=== PATIENT | male | born 1960 | race Caucasian/White ===

== ENCOUNTER → 2017-12-07 09:12 | Outpatient (CLI) | payer OTHER, BC, SELFPAY ==
[2017-12-07 09:19] LABS: RBC Urine None Seen (0-5/HPF); WBC Urine None Seen (0-5/HPF)
[2017-12-07 10:16] LABS: Add Manual Diff / Slide Review NO; Basophils Percent Auto 0.7 % (0-2); Eosinophils Percent Auto 2.3 % (2-4); Hematocrit 40.7 % (41-53); Hemoglobin 13.9 g/dL (13.5-17.5); Lymphocytes Percent Auto 17.2 % (25-40); Mean Corpuscular HGB Conc 34.2 % (30-36); Mean Corpuscular Hemoglobin 30.3 PG (26-34); Mean Corpuscular Volume 88.5 fL (80-100); Monocytes Percent Auto 10.7 % (3-14); Neutrophils Absolute Auto 3800 /uL (3000-5900); Neutrophils Percent Auto 69.1 % (50-75); Platelet Count 261 X10^3/uL (150-400); Red Cell Distribution Width 13.2 % (11.6-14.8); White Blood Cell Count 5.6 X10^3/uL (4.5-11.0)
[2017-12-07 10:36] LABS: Hemoglobin A1C% w Est Avg Glu 5.8 % (4.0-6.0)
[2017-12-07 10:42] LABS: BUN Creatinine Ratio 10.7 (6-22); Blood Urea Nitrogen 15 mg/dL (9-20); Calcium 9.3 mg/dL (8.4-10.2); Carbon Dioxide 29 mmol/L (22-32); Chloride 97 mmol/L (98-107); Estimated Glomerular Filt Rate 52.6 mL/min (>60); Glucose 92 mg/dL (70-100); HEMOLYSIS < 15 (0-50); Potassium 4.2 mmol/L (3.4-5.1); Sodium 138 mmol/L (137-145)
[2017-12-07 10:49] LABS: Appearance Urine UA CLEAR; Bilirubin Urine UA NEGATIVE (NEGATIVE); Color Urine UA YELLOW; Glucose Urine UA NEGATIVE (Normal); Ketones Urine UA NEGATIVE (NEGATIVE); Leukocyte Esterase Urine UA NEGATIVE (NEGATIVE); Nitrite Urine UA Negative (Negative); Occult Blood Urine UA NEGATIVE (Negative); Protein Urine UA NEGATIVE (Negative); Urobilinogen Urine UA 0.2 E.U./dL (0.2)
[2017-12-07 11:04] LABS: Bacteria Urine Occasional (0-1); Culture Indicated Urine Cult Not Indicated
== END ==
PROVIDERS: PCP Family Medicine; Visit Provider Orthopaedic Surgery
DX: Z01.812 Encounter for preprocedural laboratory examination (principal); Z01.818 Encounter for other preprocedural examination; N39.9 Disorder of urinary system, unspecified; R73.09 Other abnormal glucose
CPT/HCPCS: 36415; 80048; 81001; 83036; 85025; 93005

== ENCOUNTER 2022-12-31 06:11 | Day surgery (SDC) | payer OTHER, SELFPAY ==
[2022-12-23 11:42] VITALS: BMI 33.9
[2022-12-31 07:07] VITALS: BP 156/95; PULSE 61; RESP 16; TEMP 36.2; O2SAT 97; BMI 33.9
[2022-12-31] MEDS: LACTATED RINGERS 1,000 ML 42 ML IV (07:14)
--- NOTE | 2022-12-31 07:28 | PM.PREOP ---
Pre-operative Note Interval Note History & Physical reviewed/Exam performed by Physician: Yes Changes to H&P: No
--- NOTE | 2022-12-31 07:33 | SUR.PREOP ---
Block start time [0733] . Time out done prior to block placement. Dr Jay Jay Weaver assisting JOVANNY Tellez. Monitoring initiated and maintained throughout procedure. Oxygen and medications given per anesthesiologist instructions. Patient remained stable throughout procedure, no adverse reactions noted. Block end time [0740].
[2022-12-31 07:42] LABS: BUN Creatinine Ratio 9.7 (6-22); Blood Urea Nitrogen 14 mg/dL (9-20); Calcium 8.9 mg/dL (8.4-10.2); Carbon Dioxide 27 mmol/L (22-32); Chloride 102 mmol/L (98-107); Estimated Glomerular Filt Rate 55 mL/min (>60); Glucose 97 mg/dL (80-110); HEMOLYSIS < 15 (0-50); Potassium 4.2 mmol/L (3.4-5.1); Sodium 136 mmol/L (137-145)
[2022-12-31] MEDS: CEFAZOLIN 2 GM/100 ML PREMIX 100 ML IV (07:55)
--- NOTE | 2022-12-31 08:30 | SUR.OPER ---
Beach chair with [employer] shoulder positioner. Lower body on padded OR bed. Head in foam padded head cradle, secured with straps. Non-operative arm secured <90 degrees abduction. Left arm in control of surgeon. Pillow under knees. Safety belt at thigh. Cloth tape over blanket over lower legs.
[2022-12-31] MEDS: BUPIVACAINE 0.5% (PF) 30 ML, EPINEPHrine 0.15 MG INJ (08:52)
[2022-12-31 09:11] VITALS: BP 152/90; PULSE 60; RESP 16; TEMP 36.2; O2SAT 97
--- NOTE | 2022-12-31 09:11 | PM.OP.1 ---
Operative Date/Time/Diagnoses Date of procedure: 12/31/22 Time of procedure: 07:45 Pre-op diagnosis: Left shoulder partial rotator cuff tear with glenohumeral joint arthritis Post-op diagnosis: same Procedure & Clinicians Procedure: Left shoulder extensive debridement as well as subacromial decompression. Same procedure as scheduled: Yes Indications: Left shoulder partial rotator cuff tear with arthritis. Surgeon: Tyson Finley School Bus Driver/Teacher Assistant: Josephine Steiner Anesthesia Type: General and Peripheral nerve block Operative Notes Findings: Extensive arthritic changes to the glenohumeral joint with areas of full-thickness cartilage loss. No sign of any significant osteophyte formation. Degenerative changes throughout the entire labrum. Some calcifications around the proximal biceps tendon but no significant tearing. Mainly articular sided rotator cuff tearing involving the supraspinatus and infraspinatus. Subscapularis free of any significant articular sided tearing. No sign of any loose bodies in the glenohumeral joint. Synovitis and bursitis in the subacromial and subdeltoid space. No sign of any significant bursal sided rotator cuff tears. No sign of any full-thickness tears. Closure Type: primary Estimated Blood Loss (mL): 5 Procedure in detail: On date of service, Patient was met in the holding area. The operative site was signed and witnessed by the OR staff. The surgeries once again discussed with the patient and any remaining questions they had were answered fully. Patient was taken back to the operating theater and placed on the operating table in a supine position. Great care was taken to ensure that all bony prominences were properly padded. Patient was then placed into the beach chair position. The head and neck were properly positioned and secured. A timeout was performed verifying patient's name, procedure, and the operative site. The upper extremity was then prepped and draped in the normal sterile fashion. Previously, the bony anatomy and portal sites were marked out as well as injected with Marcaine with epinephrine. An 11 blade was used to make an incision in the posterior aspect of the shoulder. The camera was placed, and a diagnostic shoulder scope was performed. Findings listed above. Next under direct visualization, a anterior portal was made. Shaver was placed into the anterior portal and a extensive debridement of the glenohumeral joint was performed. As mentioned above patient had significant arthritic changes to the glenohumeral joint. Debridement of the humeral head and glenoid was performed with a shaver. Shaver was then also used to debride the labral tissue and the articular tearing to the supraspinatus and infraspinatus. No sign of any obvious high-grade partial tears no sign of any full-thickness tears. Shaver was also used to remove any synovitis in the glenohumeral joint. Next the camera was placed into the subacromial space. A lateral portal was obtained under direct visualization. A combination of the shaver and vapor wand, a debridement of the inflamed tissue as well as inflamed bursa was performed. The lateral gutter was also cleaned out. This gave us good visualization of the bursal aspect of the rotator cuff as well as the acromial arch. There was an obvious impingement lesion in the acromial arch. Next we turned our attention to the subacromial decompression. Next, a inessa was then used to do a subacromial decompression. This allowed us to convert the acromion to a type I acromial. This also allowed us to shave down the bony lesion in the acromial space. The rasp was placed into the lateral portal as well as the anterior portal in order to do a complete subacromial decompression. We then turned our attention to the rotator cuff tear. Shaver was used to debride once again any fraying or partial tearing to the superior portion of the rotator cuff. Also used to remove any remaining synovitis and inflamed bursal tissue. The shoulder was then taken through range of motion and there was no sign of any additional impingement. Patient's shoulder was then cleaned dried and dressed and patient was taken to the PACU in stable condition. Complications: none Post-operative Condition: stable Disposition: PACU Plan for aftercare: No restrictions to range of motion. We will limit his lifting until he regains full pain-free range of motion to the shoulder.
[2022-12-31 09:16] VITALS: BP 150/93; PULSE 62; RESP 13; O2SAT 92
[2022-12-31 09:21] VITALS: BP 151/92; PULSE 63; RESP 18; O2SAT 93
[2022-12-31 09:30] VITALS: BP 148/91; PULSE 67; RESP 13; O2SAT 94
[2022-12-31 09:45] VITALS: BP 151/94; PULSE 62; RESP 12; O2SAT 95
== END 2022-12-31 10:15 | disposition home or self-care (01) ==
PROVIDERS: Anesthesiology; PCP Family Medicine; Referring Provider Orthopaedic Surgery; Visit Provider Orthopaedic Surgery
PROC: (CPT 29827; principal; 2022-12-31 07:45)
DX: M75.112 Incomplete rotator cuff tear or rupture of left shoulder, not specified as traumatic (principal); M19.012 Primary osteoarthritis, left shoulder; I10 Essential (primary) hypertension; E11.9 Type 2 diabetes mellitus without complications
CPT/HCPCS: 29823; 36415; 64450; 80048; J0171; J0330; J0690; J1100; J2250; J2405; J2704; J3010

== ENCOUNTER → 2024-02-26 11:26 | Outpatient (CLI) | payer OTHER, SELFPAY ==
--- NOTE | 2024-02-26 11:28 | DI.CT.S_ITS ---
PROCEDURE: CT UE LT WO CON INDICATIONS: ARTHRITIS OF LEFT GLENOHUMERAL JOINT TECHNIQUE: Noncontrast 0.75 mm thick sections acquired from the acromioclavicular joint to the inferior scapula, with coronal and sagittal reformatting. COMPARISON: [facility] Outside Film, MR, MR SHOULDER LEFT WITHOUT CONTRAST, 07/04/2022, 11:39. FINDINGS: Image quality: Excellent. Bones: No fracture or dislocation. Joints: Severe glenohumeral joint, including a large crescentic osteophyte at the inferior-medial humeral head margin (5/107), joint space narrowing, subchondral cyst formation, and subchondral sclerosis. Mild acromioclavicular osteoarthritis. Muscles: Overall muscle bulk is preserved. Tendons: Preserved contour of the long head of the biceps tendon. Vessels: No aneurysmal dilatation of the visualized left axillary vasculature. Lymph nodes: No left axillary lymphadenopathy. Other soft tissues: Visualized heart and left lung parenchyma within normal limits. No pneumothorax. IMPRESSION: Severe glenohumeral osteoarthritis. Dictated by: Mike Lester M.D. on 02/27/2024 at 18:27 Approved by: Mike Lester M.D. on 02/27/2024 at 18:32
[2024-02-26 11:45] LABS: Add Manual Diff / Slide Review NO; Basophils Absolute Auto 0 /uL (0-100); Eosinophils Absolute Auto 100 /uL (0-450); Eosinophils Percent Auto 2.8 % (2-4); Hemoglobin 13.3 g/dL (13.5-17.5); Lymphocytes Absolute Auto 800 /uL (1100-4500); Lymphocytes Percent Auto 20.7 % (25-40); Mean Corpuscular Hemoglobin 30.7 PG (26-34); Mean Corpuscular Volume 90.2 fL (80-100); Monocytes Absolute Auto 400 /uL (0-900); Monocytes Percent Auto 9.5 % (3-14); Neutrophils Absolute Auto 2600 /uL (1500-7000); Platelet Count 205 X10^3/uL (150-400); Red Blood Cell Count 4.32 X10^6/uL (4.5-5.9); Red Cell Distribution Width 13.9 % (11.6-14.8); White Blood Cell Count 3.9 X10^3/uL (4.5-11.0)
[2024-02-26 11:58] LABS: BUN Creatinine Ratio 9.5 (6-22); Blood Urea Nitrogen 16 mg/dL (9-20); Calcium 9.2 mg/dL (8.4-10.2); Carbon Dioxide 27 mmol/L (22-32); Chloride 100 mmol/L (98-107); Estimated Glomerular Filt Rate 46 mL/min (>60); Glucose 159 mg/dL (80-110); HEMOLYSIS < 15 (0-50); Potassium 3.9 mmol/L (3.4-5.1); Sodium 134 mmol/L (137-145)
--- NOTE | 2024-02-26 12:16 | EKG_ITS ---
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
== END ==
PROVIDERS: PCP Family Medicine; Referring Provider Orthopaedic Surgery; Visit Provider Orthopaedic Surgery
DX: Z01.818 Encounter for other preprocedural examination (principal); Z01.812 Encounter for preprocedural laboratory examination; M19.012 Primary osteoarthritis, left shoulder
CPT/HCPCS: 36415; 73200; 80048; 85025; 93005

== ENCOUNTER 2024-04-11 08:53 | Day surgery (SDC) | payer OTHER, SELFPAY ==
--- NOTE | 2024-04-10 16:04 | DIET.CONS ---
Dietary Consultation Note Admission Date: Assessment: RD consulted as part of ERAS protocol. Called patient on 04/05/24. Per surgery report- Pt with PMH of diverticulitis with symptoms of progressive large bowel obstruction suspected to be from diverticular stricture. Will have diagnostic colonoscopy followed by lap colectomy as needed. Pt reports stable weight and no changes in amount of food eaten. Does note feeling bloated after eating. Discussed with pt adequate nutrition days leading up to surgery and pre and post-op diet. Discussed that reducing intake of high fibrous foods and slowing pace of eating at meals before surgery may help with symptoms of bloating. Pt had no questions or concerns. Will f/u with pt post-op while inpatient. Ht: 6 ft Wt: 244.5 lb BMI: 32.5 UBW: 240 lb 03/02/24 Electronically Signed by: Michell Leger 04/10/24 16:04 Clinical Dietitian [address] [address]
[2024-04-11 09:34] VITALS: BP 166/82; PULSE 70; RESP 16; TEMP 36.6; O2SAT 94
--- NOTE | 2024-04-11 10:00 | P.HP_ITS ---
History of Present Illness History of Present Illness Date Patient Seen: 04/11/24 Time Patient Seen: 10:01 Chief complaint: Colonoscopy Narrative: 63-year-old male here for diagnostic colonoscopy for suspected colonic stricture. No interval change in health. Please refer to H& P from last month for further detail. [facility] Medical History (Updated 03/02/24 @ 18:02 by Go Mohan MD) Clavicle fracture GI bleed Renal failure (2007) GERD (gastroesophageal reflux disease) HLD (hyperlipidemia) HTN (hypertension) Hypothyroidism Surgical History (Updated 04/04/24 @ 14:17 by Whit Leger RN) Status post left partial knee replacement (~2017) S/P rotator cuff repair (12/31/22) Status post total replacement of right shoulder (2013) History of esophagogastroduodenoscopy (EGD) (09/13/07) Hx of colonoscopy with polypectomy (05/26/16) Family History Father Hypertension Cancer Brother Hypertension Mother Cancer Social History household members: spouse Smoking Status: Never smoker alcohol intake: former substance use type: unknown Meds Home Medications and Allergies Home Medications Medication Instructions Recorded Confirmed Type amlodipine 10 mg tablet 10 mg PO DAILY 03/02/24 04/11/24 History levothyroxine 150 mcg tablet 150 mcg PO DAILY 03/02/24 04/11/24 History losartan 100 mg tablet 100 mg PO DAILY 03/02/24 04/11/24 History omeprazole 20 mg capsule,delayed 20 mg PO DAILY 03/02/24 04/11/24 History release propranolol 160 mg capsule,24 160 mg PO DAILY 03/02/24 04/11/24 History hr,extended release terazosin 10 mg capsule 10 mg PO DAILY 03/02/24 04/11/24 History metronidazole 500 mg tablet 500 mg PO TID #3 tabs 03/06/24 04/11/24 Rx neomycin 500 mg tablet 1 g (2 x 500 mg) PO TID 3 doses #6 03/06/24 04/11/24 Rx tabs Allergies Allergy/AdvReac Type Severity Reaction Status Date / Time NSAIDS (Non-Steroidal Allergy Mild cant take Verified 04/11/24 09:17 Anti-Inflamma kidney [NSAIDS (NON-STEROIDAL disease ANTI-INFLAMMA] BEE Allergy Intermediate SWELLING Uncoded 04/04/24 14:01 AT SITE Exam Vital Signs (past 8 hours): - 04/11/24 09:34 Temperature 97.8 F Pulse Rate 70 Respiratory Rate 16 Blood Pressure 166/82 H Pulse Oximetry 94 Oxygen Delivery Method Room Air Oxygen Delivery Method Room Air Narrative Exam Narrative: General adult man alert oriented no acute distress Chest nonlabored respiration Extremities warm well perfused Assessment & Plan Assessment and plan (1) Colonic stricture: Status: Acute Assessment & Plan narrative: Diagnostic colonoscopy today for suspected colonic stricture. Technical details were discussed. Risks, benefits, alternatives explained. Risks including but not limited to myocardial infarction, aspiration, bleeding, pain, missed lesion, incomplete examination, need for further radiographic studies, intestinal injury, and need for major abdominal surgery were discussed. All questions were answered to their satisfaction, and they are in agreement with this plan. Time-Based Coding :: [TOTAL MINUTES] spent with patient and on the chart (including review of chart, obtaining history, exam, reviewing outside data, placing orders, documenting exam and treatment plan, and counseling patient) on [DATE].
[2024-04-11 10:21] VITALS: BP 129/71; PULSE 781; RESP 4; TEMP 36.2; O2SAT 92
[2024-04-11 10:26] VITALS: BP 117/63; PULSE 73; RESP 14; O2SAT 95
[2024-04-11 10:31] VITALS: BP 123/71; PULSE 69; RESP 14; TEMP 36.7; O2SAT 93
--- NOTE | 2024-04-11 10:33 | P.OP.COLON_ITS ---
Operative Date/Time/Diagnoses Date of procedure: 04/11/24 Time of procedure: 10:33 Pre-op diagnosis: Colonic stricture Post-op diagnosis: other (Colonic polyp) Procedure & Clinicians Study performed: Diagnostic colonoscopy Same procedure as scheduled: Yes Indications: 63-year-old man with symptoms suggestive of a progressing colonic stricture here for diagnostic colonoscopy Surgeon: Go Mohan Procedure Notes Procedure in detail: The history and physical was performed/updated and the patient is ASA class is 2. The procedure was discussed in detail with the patient. Potential risks complications including infection, bleeding, missed diagnosis, perforation, need for surgery, and were explained. Their questions were answered and informed consent was obtained. Patient was brought to the procedure room and placed standard monitoring equipment. The patient's vital signs were monitored continuously throughout the entire procedure. Prior to starting time-out was performed. The patient was placed in the left lateral recumbent position. Procedural sedation was administered by anesthesia. Examination began with a thorough inspection of the perianal area there was no evidence of fissures, fistulae, external hemorrhoids or cutaneous malignancy. The colonoscopy scope was then placed into the anal canal and was advanced to the cecum, which was identified by the ileocecal valve, the appendiceal orifice and the confluence of the taenia. The scope was then slowly withdrawn examining colon thoroughly in all directions, irrigating it of any residual stool. The scope was retroflexed within the rectum The patient tolerated the procedure well. They will be discharged once criteria are met. The prep was of good/excellent quality. The withdrawl time was 7 minutes. FINDINGS * Mild diverticulosis of distal colon * Sigmoid colon 3 mm polyp removed with biopsy forceps * No colonic stricture or mass Specimen(s): other (Sigmoid colon polyp) Post-procedure Recommendations: High fiber diet Plan for aftercare: Follow-up is dependent on pathology findings likely 5 years Follow up: weeks (2 weeks) Disposition: same day surgery
[2024-04-11 10:35] VITALS: BP 122/74; PULSE 70; RESP 16; TEMP 36.6; O2SAT 98
== END 2024-04-11 11:05 | disposition home or self-care (01) ==
PROVIDERS: PCP Family Medicine; Referring Provider Surgery; Visit Provider Surgery
PROC: 0DJD8ZZ Inspection of Lower Intestinal Tract, Via Natural or Artificial Opening Endoscopic (ICD-10-PCS; CPT 45378; principal; 2024-04-11 10:15)
DX: K57.30 Diverticulosis of large intestine without perforation or abscess without bleeding (principal); K63.5 Polyp of colon
CPT/HCPCS: 45380; J2704

== ENCOUNTER → 2024-04-27 15:59 | Outpatient (CLI) | payer OTHER, SELFPAY ==
[2024-04-27 17:30] LABS: BUN Creatinine Ratio 9.2 (6-22); Blood Urea Nitrogen 17 mg/dL (9-20); Calcium 9.6 mg/dL (8.4-10.2); Carbon Dioxide 29 mmol/L (22-32); Chloride 99 mmol/L (98-107); Estimated Glomerular Filt Rate 41 mL/min (>60); Glucose 103 mg/dL (80-110); HEMOLYSIS < 15 (0-50); Potassium 4.3 mmol/L (3.4-5.1); Sodium 135 mmol/L (137-145)
== END ==
PROVIDERS: PCP Family Medicine; Referring Provider Surgery; Visit Provider Surgery
DX: R10.9 Unspecified abdominal pain (principal); R10.32 Left lower quadrant pain
CPT/HCPCS: 36415; 80048; 99214

== ENCOUNTER → 2024-04-30 09:59 | Outpatient (CLI) | payer OTHER, SELFPAY ==
--- NOTE | 2024-04-30 10:00 | DI.CT.S_ITS ---
PROCEDURE: CT ABDOMEN PELVIS W CON INDICATIONS: Abdominal pain, rule out chronic diverticulitis TECHNIQUE: After the administration of intravenous contrast, axial sections acquired from the lung bases to the pubic symphysis. Coronal and sagittal reformats were performed. For radiation dose reduction, the following was used: automated exposure control, adjustment of mA and/or kV according to patient size. COMPARISON: Outside Facility, CT, CT ABDOMEN PELVIS W CON, 01/19/2024, 15:25. FINDINGS: Image quality: Diagnostic Lower chest: Partially visualized ground-glass opacity in the middle lobe. Scattered atelectasis. Aortic valve calcifications. Small hiatal hernia Liver: Scattered liver cysts. Subcentimeter lesions are too small to characterize, usually also cysts. Gallbladder and biliary system: Unremarkable, nondilated Pancreas: No ductal dilation Spleen: Nonenlarged Adrenals: No discrete nodules Kidneys: No solid mass. No hydronephrosis. Vessels and lymph nodes: The main portal vein is patent. No abdominal aortic aneurysm. Atherosclerotic calcifications are mild. No pathologic lymph nodes by size criteria. Bowel and peritoneum: No evidence of small bowel obstruction. There is a moderate rectal stool ball. Colonic diverticula are present, with mild wall thickening of the sigmoid colon. The appendix is nondilated. Mild wall thickening is also seen at the colonic hepatic flexure, differential includes peristalsis. No pathologic ascites Body wall: [id number] bilateral inguinal and umbilical fat containing hernias. The umbilical hernia may also contain mildly congested omentum Pelvis: Bladder is unremarkable. Heterogeneous prostate is not well assessed on CT. Bones: There are degenerative changes. No acute or suspicious osseous finding. IMPRESSION: Colonic diverticula with mild wall thickening of the sigmoid colon, which may represent chronic diverticular disease. There is also mild wall thickening of the hepatic flexure of the colon, differential includes peristalsis in this region. Consider colonoscopy follow-up if not already obtained. No evidence of significant acute inflammation. Other findings above. Dictated by: Glenn Duke M.D. on 04/30/2024 at 18:14 Approved by: Glenn Duke M.D. on 04/30/2024 at 18:18
== END ==
PROVIDERS: PCP Family Medicine; Referring Provider Surgery; Visit Provider Surgery
DX: K38.8 Other specified diseases of appendix (principal); K86.89 Other specified diseases of pancreas; K76.89 Other specified diseases of liver; K44.9 Diaphragmatic hernia without obstruction or gangrene; K40.90 Unilateral inguinal hernia, without obstruction or gangrene, not specified as recurrent; K42.9 Umbilical hernia without obstruction or gangrene; I70.0 Atherosclerosis of aorta; R10.9 Unspecified abdominal pain
CPT/HCPCS: 74177; Q9967

== ENCOUNTER 2024-05-04 07:03 | Day surgery (SDC) | payer OTHER, SELFPAY ==
[2024-04-27 09:41] VITALS: BMI 33.5
[2024-05-04] VITALS (8 sets, daily range): BP systolic 126–152; BP diastolic 74–92; PULSE 61–87; RESP 16–22; TEMP 36.3–36.9; O2SAT 91–96; BMI 33.2
--- NOTE | 2024-05-04 | DI.RAD.S_ITS ---
PROCEDURE: XR SHOULDER LT 1V INDICATIONS: POST OP TECHNIQUE: 1 views of the shoulder were acquired. COMPARISON: None. FINDINGS: Bones: Well-aligned, intact left arthroplasty without hardware complication. Soft tissues: No suspicious soft tissue calcifications. IMPRESSION: Well-aligned, intact left arthroplasty without hardware complication. Dictated by: Kana Mccoy M.D. on 05/04/2024 at 12:19 Approved by: Kana Mccoy M.D. on 05/04/2024 at 12:20
[2024-05-04] MEDS: ACETAMINOPHEN 325 MG TABLET 975 MG PO (08:37)
[2024-05-04] MEDS: LACTATED RINGERS 1,000 ML 42 ML IV (08:41)
--- NOTE | 2024-05-04 09:06 | PM.PREOP ---
Pre-operative Note Interval Note History & Physical reviewed/Exam performed by Physician: Yes Changes to H&P: No
--- NOTE | 2024-05-04 09:30 | SUR.PREOP ---
Time out 919 Block start time 920 . Monitoring initiated and maintained throughout procedure. Oxygen and medications given by anesthesiologist instructions. Patient remained stable throughout procedure, no adverse reactions noted. Block end time 925.
[2024-05-04] MEDS: CEFAZOLIN 2 GM/100 ML PREMIX 100 ML IV (09:35)
[2024-05-04] MEDS: TRANEXAMIC ACID 1,000 MG in SODIUM CHLORIDE 0.9% 100 ML 200 MG IV (09:40)
--- NOTE | 2024-05-04 10:01 | SUR.OPER ---
Beach chair with [employer]quet shoulder positioner. Lower body on padded OR bed. Head in foam padded head cradle, secured with straps. Non-operative arm secured <90 degrees abduction. Pillow under knees. Safety belt at thigh. Cloth tape over blanket over lower legs.
[2024-05-04] MEDS: BUPIVACAINE 0.25% (PF) 30 ML, EPINEPHrine 0.15 MG INJ (10:07)
--- NOTE | 2024-05-04 11:39 | P.OP_ITS ---
Operative Date/Time/Diagnoses Date of procedure: 05/04/24 Time of procedure: 11:39 Pre-op diagnosis: Left glenohumeral arthritis Post-op diagnosis: same Procedure & Clinicians Procedure: Left reverse total shoulder arthroplasty Same procedure as scheduled: Yes Indications: Indications: This is a 63-year-old male who has glenohumeral arthritis and a history of a rotator cuff repair. Symptoms have been present for years, insidious onset. Patient has failed a reasonable attempt at conservative therapy. After extensive discussion in clinic, they wished to go forward with surgery. Risks and benefits were described including the risk of infection, bleeding, damage to internal structures including nerves. We also discussed the risk of failure of surgery and the need for revision surgery as well as the risk of anesthesia. The patient expressed understanding with these risks and wished to go forward with surgery. Surgeon: Dennis Pimentel Refractory Repairer: Lynn Sandoval Anesthesia Type: General Operative Notes Findings: Findings: Osteoarthritis of the glenoid and humeral head as noted on preoperative imaging and under direct visualization Closure Type: primary Specimen(s): none sent Prosthetic devices, grafts, tissues, transplants, or devices: Tornier implants Base plate: 29, full wedge Glenosphere: 39 Stem: Perform 4 Poly: +3, 55% coverage Estimated Blood Loss (mL): 200 Procedure in detail: Patient was seen in the preoperative holding unit. The correct left shoulder was identified and marked with my initials. Again we discussed the risks and benefits of surgery and they wished to go forward with surgery. The patient was brought back to the operating room and placed supine on the operating table. Smooth endotracheal intubation was performed by anesthesia. All prominences were padded and they were placed into the beach chair position. Intravenous antibiotics were given. The left shoulder was then prepped with the standard sterile preparation and draping. A time-out was then performed in my initials were again identified on the correct shoulder. 1 g of IV tranexamic acid was given. A standard deltopectoral incision was made. Skin flaps were made. The cephalic vein was identified and retracted laterally. This was protected throughout the remainder of the case. Sharp dissection was made along the deltoid, subacromial and subcoracoid space to release adhesions. The conjoined tendon was identified and the axillary nerve was palpated and continuous using the tug test. It was protected throughout the remainder of the case. A brown retractor was placed underneath the deltoid muscle and a darach retractor underneath the conjoint tendon. The subscapularis muscle was ntoed to be intact. The anterior circumflex artery and associated veins on the lower border of the subscapularis were identified and tied off using 0-Vicryl. The biceps tendon was identified in the bicipital groove. This was released from its sheath, and taken from its origin on the glenoid and tied into the pectoralis tendon for a solid tenodesis. We then began a subscapularis peel. The subscapularis was tagged with an Ethibond suture. A 360 degree circumferential release of the subscapularis was performed with protection of the axillary nerve. The coracohumeral ligament was released at the base of the coracoid. The shoulder was then dislocated. Osteophytes were removed using combination of rongeur and osteotome. The rotator cuff was noted to be mostly intact. An intramedullary guide was used set at version of 20?. Using an oscillating saw a conservative humeral head cut was made. Impaction reamers were reamed up to a size 4 stem with a built-in angle 135?. A neck protector was placed. Attention was then turned to the glenoid. After retracting the humeral head posteriorly a circumferential release was performed of the capsule with protection of the axillary nerve. The labrum was then released starting at the biceps anchor and going around the rim a small amount of triceps was released from the inferior glenoid. A center guide pin was then placed using the guide, followed by Reamer. After adequate cartilage was removed the boss was reamed and the centeral hole was drilled and measured. The base plate was then implanted and screwed into place. The peripheral screws were then sequentially drilled, measured, and placed. A 39 glenosphere was then selected and screwed into place onto the base plate. Turning back to the humerus, the humeral head was delivered and trialed with a +3 retentive. The arm was taken through range of motion and this was felt to be stable. The trial was then removed and a dilute Betadine wash was then performed with 1 L of sterile saline. Before placing the final implant, drill holes were made in the bicipital groove for the subscapularis repair, and sutures were passed through the drill holes. The final stem was then impacted into the humerus. The shoulder was then reduced and again brought through range of motion and was felt to be stable. The subscapularis was then repaired using a modified racking hitch with nice loupes. The skin was closed with 2-0 vicryl and 3-0 Monocryl followed by Aquacel dressing. Patient was awoken from anesthesia and brought back to the postoperative recovery unit without issue. They were placed into a sling. Assisting participation: This operation could not have been safely performed (without compromising the technical results or length of the procedure) without the assistance of a skilled surgical aides teacher. The surgical aides teacher was medically necessary for proper positioning, retraction and manipulation of instruments, proper exposure, graft prep, and manipulation of tissue. Complications: none Post-operative Condition: stable Disposition: PACU Plan for aftercare: Postoperative instructions: Sling to remain on for 6 weeks. No external rotation past neutral for 6 weeks. Okay for the sling to come off for shower. Okay to shower over the Aquacel dressing. If any water gets underneath the dressing, remove the dressing. First postoperative visit in 2 weeks.
== END 2024-05-04 13:55 | disposition home or self-care (01) ==
LOC: OR 07:03 → AC 07:04
PROVIDERS: PCP Family Medicine; Referring Provider Orthopaedic Surgery; Visit Provider Orthopaedic Surgery
PROC: (CPT 23472; principal; 2024-05-04 09:30)
DX: M19.012 Primary osteoarthritis, left shoulder (principal); G89.18 Other acute postprocedural pain; M25.712 Osteophyte, left shoulder
CPT/HCPCS: 23472; 64450; 73020; C1776; J0171; J0690; J1100; J2405; J2704; J3010

== ENCOUNTER 2024-06-21 06:20 | Inpatient (IN) | payer OTHER, SELFPAY ==
[2024-06-12 12:46] VITALS: BMI 33.5
[2024-06-21] VITALS (14 sets, daily range): BP systolic 107–158; BP diastolic 62–83; PULSE 63–87; RESP 10–18; TEMP 36–36.6; O2SAT 92–98; BMI 31.3
--- NOTE | 2024-06-21 | PATH_ITS ---
[facility] Accession Number: [id number] No. of containers..01 Tissue . 01 Material submitted: . sigmoid colon - SIGMOID COLON . 01 Diagnosis: SIGMOID COLON, SEGMENTAL RESECTION: Diverticulosis. No additional significant pathologic alterations. One benign lymph node. No malignancy. [facility] 06/26/2024 1106 Local . 01 Electronically signed: . Kika Trinh MD, Pathologist NPI- [id number] . 01 Gross description: . Received in formalin with two patient identifiers and sigmoid colon, is an unoriented segment of colon, 7.1 cm in length by 2.6 cm in diameter. A moderate amount of attached adipose extends out to 5.2 cm. The visible serosa is kay and smooth. One staple line is inked blue while the opposite staple line is inked black, and the mesenteric margin is inked green. The lumen contains a small amount of green-kay mucoid material. The mucosa is pink-kay and velvety with normal appearing folds and no lesions identified. The lemons average 0.3 cm thick with multiple diverticula extending up to 1.1 cm thick with no distinct perforations identified. Palpation reveals six kay lymph node candidates, 0.2-0.4 cm in greatest dimension. Vat Packer sections are submitted as follows: . A1: Rep margins en face. A2: Diverticula. A3: Unremarkable full thickness sections. A4: Three intact lymph node candidates. A5: Three intact lymph node candidates. ([id number]) . Additional sections of diverticula are submitted in cassettes A6-A7. ([id number]) /MRV 06/27/2024 0850 Local . 01 Pathologist provided ICD-10: K57.92, K56.699 . 01 CPT . 784955 Specimen Comment: A courtesy copy of this report has been sent to [phone] Performed at: [address] [facility] [address], [place], [place] [id number] MD Irvin Pinto MD Phone: [phone]
[2024-06-21] MEDS: LACTATED RINGERS 1,000 ML 42 ML IV ×2 (07:00→09:13)
--- NOTE | 2024-06-21 07:58 | PM.PREOP ---
Pre-operative Note COVID-19 COVID-19 status: Not tested Interval Note History & Physical reviewed/Exam performed by Physician: Yes Changes to H&P: No ASA Class (for procedural sedation): II
[2024-06-21] MEDS: AMPICILLIN/SULBACTAM 3 GM 3 GM in SODIUM CHLORIDE 0.9% 100 ML IV (08:08)
--- NOTE | 2024-06-21 08:55 | SUR.OPER ---
Lithotomy on padded OR bed. Toxey Pad Positioner under torso. Head on pillow, arms padded and tucked at sides. Legs secured in padded yellow fins stirrups.
[2024-06-21] MEDS: BUPIVACAINE 0.5% (PF) 30 ML, EPINEPHrine 0.15 MG INJ (09:16)
[2024-06-21] MEDS: BUPIVACAINE LIPOSOME 266 MG/20 ML VIAL INJ (09:17)
--- NOTE | 2024-06-21 11:38 | PM.OP.1 ---
Operative Date/Time/Diagnoses Date of procedure: 06/21/24 Time of procedure: 11:38 Pre-op diagnosis: Diverticulitis Post-op diagnosis: same Procedure & Clinicians Procedure: Laparoscopic sigmoid colon resection Same procedure as scheduled: Yes Surgeon: Adrian Guadalupe Tower Truck Driver: Temo Davidson Anesthesia Type: General Operative Notes Procedure in detail: The patient was given Unasyn. The patient was brought to the operating room, placed on the table in the supine position and general endotracheal anesthesia was induced. Hogue catheter was inserted and the legs were placed in stirrups. The abdomen was prepped and draped in the usual fashion and a time-out was performed. We made a 1 cm infraumbilical incision and a Almanza port was placed. The abdomen was insufflated in the usual manner. The camera was inserted no evidence of an injury was seen. Next we placed 5 mm ports in the right lower quadrant, right upper quadrant left upper quadrant and left lower quadrant. We inspected the abdomen and noted adhesions of the sigmoid colon to the abdominal wall. We carefully divided the adhesions with hot scissors. We then started to reflect the sigmoid colon along the white line of Toldt. We then continued the dissection to the splenic flexure and performed a complete takedown of the splenic flexure including the distal transverse colon. We continued the dissection down into the pelvis. Once we had adequate mobilization we created a window through the mesentery at the junction of the sigmoid colon and upper rectum. We then upsized the right lower quadrant port to a 12 mm port and divided the sigmoid colon from the rectum using a single firing of an Endo-AVILA stapler with a blue load. We then created a Pfannenstiel incision and used a small Abhijit retractor. We exteriorized the sigmoid colon and divided it at the proximal sigmoid colon. We then placed the anvil from a 31 mm EEA stapler into the proximal colon and sewed it closed with a PDS suture in a pursestring fashion. We then created a colorectal anastomosis using the 31 mm EEA stapler. The donuts were intact and the leak test was negative for leak. Finally, Exparel was injected into the pre and post fascial planes. The fascia of the Pfannenstiel incision was then closed using a running 0 PDS suture. We then closed the right lower quadrant fascial defect with a [id number] of 0 PDS. We closed the infraumbilical incision with an 0 Vicryl UR 6. Skin was closed with Steri-Strips and Band-Aids. The patient was awakened and brought to recovery room. Temo DUCKWORTH provided assistance with exposure, retraction and closure of incisions. EBL: 30 mL Specimen: sigmoid colon Post-operative Condition: stable Disposition: PACU
[2024-06-21] MEDS: ONDANSETRON 4 MG/2 ML INJ IV (12:02)
[2024-06-21] MEDS: OXYCODONE/ACETAMINOPHEN 5/325 TABLET 1 TAB PO (12:03)
[2024-06-21] MEDS: LACTATED RINGERS 1,000 ML 100 ML IV ×2 (12:50→22:39)
[2024-06-21] MEDS: HYDROCODONE/ACET 5/325 TABLET 2 TAB PO (16:21)
--- NOTE | 2024-06-21 17:22 | PC.NURSE ---
Postop Note Patient arrived to room 214 from PACU at 1230. Alert and oriented x3, on 2L NC with SpO2 mid-90s. Own CPAP at bedside for tonight. BTs hypoactive, distended but soft, slightly tender. 5 lap sites to abdomen C/D/I, gauze dressing to lower abdomen D/I. Hogue catheter in place and draining clear yellow urine. Medicated with 2 tabs [place] for report of pain 12/21 (see emar), pt denies pain on reassessment. Pt reported feeling pressure in abdomen and feeling like he needed to have a BM shortly after arrival to room. Assisted to side of bed, logrolled with minimal cues and 1 person assist with FWW to BSC. No flatus, no BM and assisted back to bed. Tolerated clear liquids without issue. Oriented to call light/bed/tv controls. Call light within reach, using appropriately to make needs known.
[2024-06-21] MEDS: AMLODIPINE 5 MG TABLET 10 MG PO (21:08)
[2024-06-21] MEDS: PROPRANOLOL 10 MG TABLET 80 MG PO (21:09)
[2024-06-21] MEDS: TERAZOSIN 5 MG CAPSULE 10 MG PO (21:09)
[2024-06-21] MEDS: HYDROCODONE/ACET 5/325 TABLET 1 TAB PO (21:09)
[2024-06-21] MEDS: ATORVASTATIN 20 MG TABLET 40 MG PO (21:09)
[2024-06-22 01:14] VITALS: BP 107/64; PULSE 90; RESP 20; TEMP 36.7; O2SAT 93
[2024-06-22 04:39] VITALS: BP 109/56; PULSE 65; RESP 18; TEMP 36.7; O2SAT 90
[2024-06-22] MEDS: LEVOTHYROXINE 75 MCG TABLET 150 MCG PO (05:12)
[2024-06-22] MEDS: ACETAMINOPHEN 325 MG TABLET 650 MG PO (05:15)
[2024-06-22 07:02] LABS: Add Manual Diff / Slide Review NO; Basophils Absolute Auto 0 /uL (0-100); Basophils Percent Auto 0.2 % (0-2); Eosinophils Absolute Auto 0 /uL (0-450); Eosinophils Percent Auto 0.1 % (2-4); Hematocrit 33.9 % (41-53); Hemoglobin 11.5 g/dL (13.5-17.5); Lymphocytes Absolute Auto 800 /uL (1100-4500); Lymphocytes Percent Auto 7.1 % (25-40); Mean Corpuscular HGB Conc 33.8 % (30-36); Mean Corpuscular Hemoglobin 30.4 PG (26-34); Mean Corpuscular Volume 89.8 fL (80-100); Monocytes Absolute Auto 1000 /uL (0-900); Neutrophils Absolute Auto 9300 /uL (1500-7000); Neutrophils Percent Auto 83.6 % (50-75); Platelet Count 252 X10^3/uL (150-400); Red Blood Cell Count 3.77 X10^6/uL (4.5-5.9); Red Cell Distribution Width 13.5 % (11.6-14.8); White Blood Cell Count 11.1 X10^3/uL (4.5-11.0)
[2024-06-22 07:15] LABS: BUN Creatinine Ratio 8.8 (6-22); Blood Urea Nitrogen 15 mg/dL (9-20); Calcium 8.7 mg/dL (8.4-10.2); Carbon Dioxide 24 mmol/L (22-32); Chloride 104 mmol/L (98-107); Estimated Glomerular Filt Rate 45 mL/min (>60); Glucose 101 mg/dL (80-110); HEMOLYSIS < 15 (0-50); Potassium 3.8 mmol/L (3.4-5.1); Sodium 136 mmol/L (137-145)
[2024-06-22] MEDS: HYDROCODONE/ACET 5/325 TABLET 1 TAB PO ×3 (07:34→20:33)
[2024-06-22 08:27] VITALS: BP 122/65
[2024-06-22] MEDS: SERTRALINE 50 MG TABLET 100 MG PO (08:27)
[2024-06-22] MEDS: LOSARTAN 50 MG TABLET 100 MG PO (08:27)
[2024-06-22] MEDS: PROPRANOLOL 10 MG TABLET 80 MG PO ×2 (08:32→20:33)
[2024-06-22 08:57] VITALS: PULSE 81; RESP 16; TEMP 37.1; O2SAT 92
[2024-06-22 12:00] VITALS: BP 119/69; PULSE 71; RESP 16; TEMP 36.7; O2SAT 94
--- NOTE | 2024-06-22 12:39 | CM.DANOTE ---
Initial DCP Assessment Note Pt is a 63 yo male, resident of [place], now POD#1 from Laparoscopic sigmoid colon resection PCP: David Oseguera Payer: [facility] Reviewed chart, pt discussed in multidisciplinary rounds this morning. Patient lives independently with spouse in [place] and expected to return without any known barriers when medically cleared to do so. Patient walking the halls independently. No barriers identified at this time to patient's safe discharge home w/family to assist; close outpatient f/u recommended. CM team will plan to follow clinical course closely in case any DC needs or concerns arise. MARIBELL Luis Discharge Planning/Care Management CM Discharge Assessment Start: 06/22/24 12:36 Freq: Status: Active Protocol: Document 06/22/24 12:37 ARPIT (Rec: 06/22/24 12:39 ARPIT [id number]) Discharge Planning Assessment Assigned Brake Lining Driller MARIBELL Bernabe DPOA/Assigned Designee Name Hali Polanco, spouse Contact Information [phone] Advance Directives? Yes Advance Directives on File No History Provided By Patient,Medical Record Prior Living Arrangements Mobile home Household Members spouse Type of transporation used prior to Drives own vehicle admit Independent with ADL's Yes Is patient alert and oriented? Yes Barriers to Discharge No Discharge Plan Home Transportation Arrangement Spouse Referrals Initiated None needed
--- NOTE | 2024-06-22 15:30 | P.PN_ITS ---
Subjective Subjective Date Patient Seen: 06/22/24 Time Patient Seen: 15:30 Interval history: Complains of some moderate incisional pain Has been ambulating Hogue is out Tolerating some clears but no real appetite No bowel function yet. Exam Vital Signs (past 8 hours): - 06/22/24 08:27 06/22/24 08:57 06/22/24 12:00 Temperature 98.7 F 98.1 F Pulse Rate 81 71 Respiratory Rate 16 16 Blood Pressure 122/65 119/69 Pulse Oximetry 92 94 Oxygen Flow Rate 0 Oxygen Delivery Method Nasal Cannula Oxygen Flow Rate 0 Narrative Exam Narrative: In good spirits Abdomen soft Objective Labs 06/22/24 06:00 06/22/24 06:00 Labs: Laboratory Results - last 24 hr 06/22/24 06:00 WBC 11.1 H RBC 3.77 L Hgb 11.5 L Hct 33.9 L MCV 89.8 MCH 30.4 MCHC 33.8 RDW 13.5 Plt Count 252 Neut % (Auto) 83.6 H Lymph % (Auto) 7.1 L [place] % (Auto) 9.0 Eos % (Auto) 0.1 L Baso % (Auto) 0.2 Neut # (Auto) 9300 H Lymph # (Auto) 800 L [place] # (Auto) 1000 H Eos # (Auto) 0 Baso # (Auto) 0 Sodium 136 L Potassium 3.8 Chloride 104 Carbon Dioxide 24 BUN 15 Creatinine 1.70 H Estimated GFR 45 L BUN/Creatinine Ratio 8.8 Glucose 101 Calcium 8.7 PFSH Medical History Kidney disease Pre-diabetes OWEN (obstructive sleep apnea) Clavicle fracture GI bleed GERD (gastroesophageal reflux disease) HLD (hyperlipidemia) HTN (hypertension) Hypothyroidism Surgical History 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) History of colonoscopy with polypectomy (04/11/24) Hx of arthroscopy of shoulder (12/31/22) Status post left partial knee replacement (~2017) S/P rotator cuff repair (12/31/22) Status post total replacement of right shoulder (2013) History of esophagogastroduodenoscopy (EGD) (09/13/07) Hx of colonoscopy with polypectomy (05/26/16) Family History Father Hypertension Cancer Brother Hypertension Mother Cancer Social History household members: spouse Smoking Status: Former smoker alcohol intake: former substance use type: unknown Assessment & Plan Assessment and plan (1) Diverticulitis large intestine: Qualifiers: Diverticulitis bleeding: without bleeding Diverticulitis complication: without perforation or abscess Qualified Code(s): K57.32 - Diverticulitis of large intestine without perforation or abscess without bleeding Status: Acute Plan Continue clears Start lovenox Advance diet when passing flatus or hungry Time-Based Coding :: [TOTAL MINUTES] spent with patient and on the chart (including review of chart, obtaining history, exam, reviewing outside data, placing orders, documenting exam and treatment plan, and counseling patient) on [DATE].
[2024-06-22 20:26] VITALS: BP 137/79; PULSE 66; RESP 16; TEMP 36.2; O2SAT 93
[2024-06-22] MEDS: ATORVASTATIN 20 MG TABLET 40 MG PO (20:32)
[2024-06-22] MEDS: TERAZOSIN 5 MG CAPSULE 10 MG PO (20:32)
[2024-06-22] MEDS: AMLODIPINE 5 MG TABLET 10 MG PO (20:32)
[2024-06-22] MEDS: ONDANSETRON 4 MG/2 ML INJ IV (20:39)
[2024-06-23 00:40] VITALS: BP 129/71; PULSE 65; RESP 18; TEMP 36.5; O2SAT 94
[2024-06-23 04:57] VITALS: BP 123/68; PULSE 69; RESP 18; TEMP 36.2; O2SAT 95
[2024-06-23] MEDS: LEVOTHYROXINE 75 MCG TABLET 150 MCG PO (05:18)
[2024-06-23 08:00] VITALS: BP 131/74; PULSE 72; RESP 18; TEMP 36.3; O2SAT 100
[2024-06-23] MEDS: ENOXAPARIN 40 MG/0.4 ML SYRINGE SUBCUT (08:44)
[2024-06-23] MEDS: PROPRANOLOL 10 MG TABLET 80 MG PO ×2 (08:45→20:22)
[2024-06-23] MEDS: SERTRALINE 50 MG TABLET 100 MG PO (08:45)
[2024-06-23] MEDS: LOSARTAN 50 MG TABLET 100 MG PO (08:45)
[2024-06-23] MEDS: HYDROCODONE/ACET 5/325 TABLET 1 TAB PO ×2 (08:45→19:35)
[2024-06-23] MEDS: ONDANSETRON 4 MG/2 ML INJ IV (08:46)
[2024-06-23 12:00] VITALS: BP 134/74; PULSE 65; RESP 18; TEMP 36.3; O2SAT 94
[2024-06-23 16:00] VITALS: BP 142/74; PULSE 66; RESP 20; TEMP 36.6; O2SAT 94
--- NOTE | 2024-06-23 17:02 | P.PN_ITS ---
Subjective Subjective Date Patient Seen: 06/23/24 Time Patient Seen: 17:03 Interval history: Patient has had some nausea with clear liquids but is passing flatus. 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) History of colonoscopy with polypectomy (04/11/24) Hx of arthroscopy of shoulder (12/31/22) Status post left partial knee replacement (~2017) S/P rotator cuff repair (12/31/22) Status post total replacement of right shoulder (2013) History of esophagogastroduodenoscopy (EGD) (09/13/07) Hx of colonoscopy with polypectomy (05/26/16) Family History Father Hypertension Cancer Brother Hypertension Mother Cancer Social History household members: spouse Smoking Status: Former smoker alcohol intake: former substance use type: unknown Assessment & Plan Post-op Postoperative Procedures: Procedures Operation Date: 06/21/24 07:45 Actual Procedure Side Surgeon p Laparoscopic Sigmoid Colectomy Adrian Guadalupe MD Postoperative day: 2 Postoperative status: doing well Postoperative status narrative: Continue clear liquids await improvement of nausea Postoperative plan: routine post-op care Time Spent With Patient Time with patient: less than 15 minutes
[2024-06-23 20:00] VITALS: BP 150/79; PULSE 74; RESP 18; TEMP 36.8; O2SAT 93
[2024-06-23] MEDS: TERAZOSIN 5 MG CAPSULE 10 MG PO (20:22)
[2024-06-23] MEDS: AMLODIPINE 5 MG TABLET 10 MG PO (20:22)
[2024-06-23] MEDS: ATORVASTATIN 20 MG TABLET 40 MG PO (20:22)
[2024-06-23] MEDS: SODIUM CHLORIDE 0.9% FLUSH 10 ML IV (20:23)
[2024-06-24] VITALS: BP 122/63; PULSE 61; RESP 16; TEMP 36.4; O2SAT 94
[2024-06-24 04:00] VITALS: BP 130/70; PULSE 63; RESP 16; TEMP 36.3; O2SAT 96
[2024-06-24] MEDS: HYDROCODONE/ACET 5/325 TABLET 1 TAB PO ×2 (05:35→19:51)
[2024-06-24] MEDS: LEVOTHYROXINE 75 MCG TABLET 150 MCG PO (05:36)
[2024-06-24 08:00] VITALS: BP 146/79; PULSE 64; RESP 18; TEMP 36.4; O2SAT 94
--- NOTE | 2024-06-24 08:02 | P.PN_ITS ---
Subjective Subjective Date Patient Seen: 06/24/24 Time Patient Seen: 08:02 Interval history: Patient states he had a bowel movement, but is still having some nausea. He would like to try to advance diet today. 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) History of colonoscopy with polypectomy (04/11/24) Hx of arthroscopy of shoulder (12/31/22) Status post left partial knee replacement (~2017) S/P rotator cuff repair (12/31/22) Status post total replacement of right shoulder (2013) History of esophagogastroduodenoscopy (EGD) (09/13/07) Hx of colonoscopy with polypectomy (05/26/16) Family History Father Hypertension Cancer Brother Hypertension Mother Cancer Social History household members: spouse Smoking Status: Former smoker alcohol intake: former substance use type: unknown Assessment & Plan Post-op Postoperative Procedures: Procedures Operation Date: 06/21/24 07:45 Actual Procedure Side Surgeon p Laparoscopic Sigmoid Colectomy Adrian Guadalupe MD Postoperative day: 3 Postoperative status: doing well and marginal pain control Postoperative status narrative: Await tolerance of diet prior to discharge planning Time Spent With Patient Time with patient: less than 15 minutes
--- NOTE | 2024-06-24 08:15 | PC.NURSE ---
Addendum entered by Paolo Cruz R.N. 06/24/24 18:41: Pt feeling a bit bloated about hour or so after dinner. Encouraged to get up and walk around the unit to good effect. Original Note: Pt a&0 follows commands asking appropriate questions. Voicing appropriate concerns about advancing diet. Dr. Guzman in to see Pt. Changed diet order to soft diet for lunch. Pt presently up in chair taking cliq. diet. Pt independent in room. Encouraged to be up walking as much as possible.
[2024-06-24] MEDS: SERTRALINE 50 MG TABLET 100 MG PO (08:45)
[2024-06-24 08:46] VITALS: BP 146/79; PULSE 64
[2024-06-24] MEDS: LOSARTAN 50 MG TABLET 100 MG PO (08:46)
[2024-06-24] MEDS: ENOXAPARIN 40 MG/0.4 ML SYRINGE SUBCUT (08:46)
[2024-06-24] MEDS: PROPRANOLOL 10 MG TABLET 80 MG PO ×2 (08:47→19:51)
[2024-06-24] MEDS: SODIUM CHLORIDE 0.9% FLUSH 10 ML IV ×2 (08:52→19:52)
--- NOTE | 2024-06-24 10:58 | CM.DPNOTE ---
DCP note PUTAWAY DRIVER reviewed EMR pt is POD3 lap sigmoid colon resection. Per RN notes/report, advancing diet to soft for lunch. had a BM yesterday. Per surgeon PN, pt still reports some nausea. will continue to advance diet. No barriers identified at this time to patient's safe discharge home w/family to assist; close outpatient f/u recommended. CM team will plan to follow clinical course closely in case any DC needs or concerns arise. MARIBELL Khalil
[2024-06-24 12:00] VITALS: BP 129/67; PULSE 58; RESP 18; TEMP 36.4; O2SAT 95
[2024-06-24] MEDS: AMLODIPINE 5 MG TABLET 10 MG PO (19:51)
[2024-06-24] MEDS: TERAZOSIN 5 MG CAPSULE 10 MG PO (19:52)
[2024-06-24] MEDS: ATORVASTATIN 20 MG TABLET 40 MG PO (19:52)
[2024-06-24 20:05] VITALS: BP 143/71; PULSE 68; RESP 19; TEMP 36.8; O2SAT 96
[2024-06-25] MEDS: LEVOTHYROXINE 75 MCG TABLET 150 MCG PO (05:34)
[2024-06-25 08:30] VITALS: BP 133/67; PULSE 75; RESP 17; TEMP 36.8; O2SAT 99
--- NOTE | 2024-06-25 09:59 | PM.PNPO.1 ---
Subjective Subjective Date Patient Seen: 06/25/24 Time Patient Seen: 09:59 Interval history: Patient is having bowel movements tolerating a diet with our pain. He last took [place] at 8:00 p.m. last night. Slept well through the night. Eager to go home. Exam Vital Signs (past 8 hours): - 06/25/24 08:30 Temperature 98.2 F Pulse Rate 75 Respiratory Rate 17 Blood Pressure 133/67 Pulse Oximetry 99 Oxygen Flow Rate 0 Oxygen Delivery Method Nasal Cannula Oxygen Flow Rate 0 Narrative Exam Narrative: Incisions are clean and dry. Band-Aids in the upper abdomen were removed due to blistering yesterday. Now has dry gauze in place without any further concern with the skin. 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) History of colonoscopy with polypectomy (04/11/24) Hx of arthroscopy of shoulder (12/31/22) Status post left partial knee replacement (~2017) S/P rotator cuff repair (12/31/22) Status post total replacement of right shoulder (2013) History of esophagogastroduodenoscopy (EGD) (09/13/07) Hx of colonoscopy with polypectomy (05/26/16) Family History Father Hypertension Cancer Brother Hypertension Mother Cancer Social History household members: spouse Smoking Status: Former smoker alcohol intake: former substance use type: unknown Assessment & Plan Post-op Postoperative Procedures: Procedures Operation Date: 06/21/24 07:45 Actual Procedure Side Surgeon p Laparoscopic Sigmoid Colectomy Adrian Guadalupe MD Postoperative day: 4 Postoperative status: doing well Postoperative plan: discharge Time Spent With Patient Time with patient: less than 15 minutes
--- NOTE | 2024-06-25 10:03 | P.DS_ITS ---
History of Present Illness History of Present Illness Date Patient Seen: 06/25/24 Time Patient Seen: 10:03 Date of Onset of Symptoms: 06/25/24 Chief complaint: Laparoscopically Assisted Colectomy Narrative: Patient has been doing well postoperatively, having bowel movements and tolerating a soft diet. Discharge Providers Provider Date of admission: 06/21/24 06:20 Discharge Date: 06/25/24 Primary care physician: David Oseguera MD Discharge provider: Jorge Luis Guzman MD Summary Hospital Course Discharge Diagnosis: Sigmoid diverticulitis Hospital Course: Underwent laparoscopic sigmoid resection with anastomosis. Had a routine postoperative course Status at Discharge Cognitive/behavioral status at discharge: oriented Functional status at discharge: independent ambulation Overall status at discharge: patient is back to baseline Time Spent with Patient Time spent: Less than 30 minutes Exam Vital Signs (past 8 hours): - 06/25/24 08:30 Temperature 98.2 F Pulse Rate 75 Respiratory Rate 17 Blood Pressure 133/67 Pulse Oximetry 99 Oxygen Flow Rate 0 Oxygen Delivery Method Nasal Cannula Oxygen Flow Rate 0 Objective Labs 06/22/24 06:00 06/22/24 06:00 [facility] Medical History Kidney disease Pre-diabetes OWEN (obstructive sleep apnea) Clavicle fracture GI bleed GERD (gastroesophageal reflux disease) HLD (hyperlipidemia) HTN (hypertension) Hypothyroidism Surgical History 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) History of colonoscopy with polypectomy (04/11/24) Hx of arthroscopy of shoulder (12/31/22) Status post left partial knee replacement (~2017) S/P rotator cuff repair (12/31/22) Status post total replacement of right shoulder (2013) History of esophagogastroduodenoscopy (EGD) (09/13/07) Hx of colonoscopy with polypectomy (05/26/16) Family History Father Hypertension Cancer Brother Hypertension Mother Cancer Social History household members: spouse Smoking Status: Former smoker alcohol intake: former substance use type: unknown Discharge Assessment & Plan Assessment and Plan Assessment: Sigmoid diverticulitis Plan of Treatment: Successful surgical resection Discharge Plan Discharge Plan Patient Disposition: Home Discharge orders & Medications Prescriptions: New hydrocodone-acetaminophen 5-325 mg Tablet 1 tab PO Q4H PRN (Reason: Pain, Moderate (4-6)) Qty: 5 0RF Continued terazosin 10 mg capsule 10 mg PO BEDTIME amlodipine 10 mg tablet 10 mg PO BEDTIME propranolol 160 mg capsule,extended release 24 hr 160 mg PO DAILY omeprazole 20 mg capsule,delayed release(DR/EC) 20 mg PO DAILY levothyroxine 150 mcg tablet 150 mcg PO DAILY losartan 100 mg tablet 100 mg PO DAILY atorvastatin 40 mg Tablet 40 mg PO BEDTIME sertraline 100 mg Tablet 100 mg PO DAILY ondansetron 4 mg tablet,disintegrating 4 mg PO Q8H PRN (Reason: nausea and vomiting) Qty: 7 0RF acetaminophen 325 mg capsule 650 mg PO Q6H PRN (Reason: pain) Qty: 60 0RF Follow up/Referrals: David Oseguera MD [Primary Care Provider] - Diet/Activity/Treatments Diet: Regular Diet comment: soft diet Skin/Wound/Dressing Care Report to your healthcare provider any signs of infection, such as:: chills, fever, night sweats, increased pain, unusual drainage and unusual redness Visit Report/Discharge Packet Instructions: DI for Colectomy, DI for Prescription Opioid Use, [facility]: Wound Care Stand Alone Forms: Patient Portal/API, Stroke Signs & Symptoms Discharge Data Primary Care Provider: David Oseguera
[2024-06-25] MEDS: ENOXAPARIN 40 MG/0.4 ML SYRINGE SUBCUT (10:22)
[2024-06-25] MEDS: LOSARTAN 50 MG TABLET 100 MG PO (10:23)
[2024-06-25] MEDS: SERTRALINE 50 MG TABLET 100 MG PO (10:23)
[2024-06-25] MEDS: PROPRANOLOL 10 MG TABLET 80 MG PO (10:23)
== END 2024-06-25 13:00 | disposition home or self-care (01) | DRG 331 ==
PROVIDERS: Admitting Provider Surgery; PCP Family Medicine; Referring Provider Surgery; Visit Provider Surgery
PROC: 0DTE0ZZ Resection of Large Intestine, Open Approach (ICD-10-PCS; principal; 2024-06-21 07:45)
DX: K57.32 Diverticulitis of large intestine without perforation or abscess without bleeding (principal); K66.0 Peritoneal adhesions (postprocedural) (postinfection); I10 Essential (primary) hypertension; K21.9 Gastro-esophageal reflux disease without esophagitis; E03.9 Hypothyroidism, unspecified; E78.5 Hyperlipidemia, unspecified; G47.33 Obstructive sleep apnea (adult) (pediatric); Z87.891 Personal history of nicotine dependence
CPT/HCPCS: 80048; 85025; J0171; J0295; J0330; J0666; J1100; J1171; J1650; J2250; J2405; J2704; J3010